=== PATIENT | female | born 1965 | race Caucasian/White ===

== ENCOUNTER 2019-05-22 10:45 | Emergency (ER) | payer OTHER ==
[2019-05-22 10:59] VITALS: BMI 24.2
--- NOTE | 2019-05-22 11:06 | PDOC ---
History of Present Illness - General Chief Complaint: Cold Symptoms Stated Complaint: Cold Symptoms Time Seen by Provider: 05/22/19 10:57 - History of Present Illness Initial Comments: Ms. Cespedes is a 53 y/o female with PMH significant for s/p kidney and pancreas transplant in 2016 ([facility]), s/p cardiac stents, HTN, presenting today with productive cough over the past two days. Reports that the cough is getting worse and productive of green sputum. No chest pain. Reports shortness of breath after coughing. No fever. Reports chills. No nausea/vomiting. No recent sick contacts. Meds: tacrolimus, prednisone, mycophenolate Past History - Past Medical History Allergies/Adverse Reactions: Allergies Allergy/AdvReac Type Severity Reaction Status Date / Time No Known Allergies Allergy Verified 05/22/19 10:52 Home Medications: Ambulatory Orders Aspirin [ASA -] 81 mg PO DAILY 01/04/16 Aflibercept [Eylea] 1 dose IJ ASDIR 05/22/19 Azithromycin [Zithromax 250mg Tablets -] 250 mg PO UTDICT #6 tab 05/22/19 Bupropion HCl [Bupropion HCl ER] 200 mg PO DAILY 05/22/19 Duloxetine HCl [Cymbalta -] 60 mg PO DAILY 05/22/19 Metoprolol Succinate [Toprol Xl] 25 mg PO DAILY 05/22/19 Rosuvastatin Calcium [Crestor] 5 mg PO HS 05/22/19 Anemia: No Asthma: No Cancer: No Cardiac Disorders: No CVA: No COPD: No CHF: No Dementia: No Diabetes: Yes (OVER 40 YEARS) Dialysis: Yes (, , sat) GI Disorders: Yes Disorders: Yes (ESRD, DIALYSIS ,, SAT. [facility] [address]) HTN: Yes Hypercholesterolemia: No Liver Disease: No Seizures: No Thyroid Disease: No - Surgical History Abdominal Surgery: No Appendectomy: No Cardiac Surgery: Yes (STENTS X 2 06/2014) Cholecystectomy: No Lung Surgery: No Neurologic Surgery: No Orthopedic Surgery: No - Immunization History Immunization Up to Date: Yes - Psycho Social/Smoking Cessation Hx Smoking History: Smoker current status UNK Have you smoked in the past 12 months: No Hx Alcohol Use: No Drug/Substance Use Hx: No Substance Use Type: None Hx Substance Use Treatment: No Review of Systems - Review of Systems Comments:: GENERAL/CONSTITUTIONAL: No fever or chills. No weakness._ HEAD, EYES, EARS, NOSE AND THROAT: No change in vision. No change in hearing. No sore throat._ CARDIOVASCULAR: No chest pain. Reports shortness of breath. RESPIRATORY: Reports cough. GASTROINTESTINAL: No nausea, vomiting, diarrhea or constipation._ GENITOURINARY: No dysuria, frequency, or change in urination._ MUSCULOSKELETAL: No joint or muscle swelling or pain. No neck or back pain._ SKIN: No rash_ NEUROLOGIC: No headache, vertigo, loss of consciousness, or change in strength/ sensation._ ENDOCRINE: No increased thirst. No abnormal weight change_ HEMATOLOGIC/LYMPHATIC: No anemia, easy bleeding, or history of blood clots._ ALLERGIC/IMMUNOLOGIC: No hives or skin allergy._ *Physical Exam - Vital Signs Last Vital Signs Temp Pulse Resp BP Pulse Ox 98.4 F 92 H 18 120/71 99 05/22/19 10:56 05/22/19 10:56 05/22/19 10:56 05/22/19 10:56 05/22/19 10:56 - Physical Exam GENERAL: Awake, alert, and oriented to person/place/time, in no acute distress_ HEAD: No signs of trauma, normoc ephalic, atraumatic _ EYES: PERRLA, EOMI, sclera anicteric, conjunctiva clear_ ENT: Hearing grossly normal, nares patent, oropharynx clear without exudates. No uvular deviation. Moist mucosa_ NECK: Normal ROM, supple, no lymphadenopathy, JVD, or masses_ LUNGS: No distress, speaks in full sentences, congestion in bilateral lower lung leach, no wheezes HEART: Regular rate and rhythm, normal S1 and S2, no murmurs appreciated, peripheral pulses normal and equal bilaterally._ ABDOMEN: Soft, nontender, normoactive bowel sounds. No guarding, no rebound. No masses_ EXTREMITIES: Normal inspection, Normal range of motion, no edema. No clubbing or cyanosis_ NEUROLOGICAL: Cranial nerves II through XII grossly intact. Normal speech, normal gait, no focal sensorimotor deficits _ SKIN: Warm, Dry, normal turgor, no rashes or lesions noted_ ED Treatment Course - LABORATORY CBC & Chemistry Diagram: 05/22/19 11:40 05/22/19 17:49 - RADIOLOGY Radiology Studies Ordered: Category Date Time Status CHEST PA & LAT [RAD] Stat Radiology 05/22/19 11:04 Ordered Medical Decision Making - Medical Decision Making 05/22/19 11:22 53 y/o female s/p pancreas txp, kidney txp, cardiac stents, presenting with productive cough worsening over the past 2 days. -cbc, cmp, lactic, coags -ekg, trop, cxr -ua, ucx -blood cx -duonebs -IV fluids -flu swab 05/22/19 13:09 EKG shows NSR, 91 bpm, no ST elevation/depression QTc 430. 05/22/19 15:09 CXR shows no acute intra thoracic pathology. 05/22/19 19:05 Labs reviewed. Pt reassessed. Reports moderate improvement. Plan to d/c home with PCP and transplant physician follow up tomorrow. All questions answered. Pt verbalized understanding and agreement with plan. Laboratory Tests 05/22/19 05/22/19 05/22/19 11:40 11:40 11:40 WBC 7.1 RBC 5.43 H Hgb 13.4 Hct 43.9 MCV 80.8 MCH 24.8 L D MCHC 30.7 L RDW 21.5 H Plt Count 163 D MPV 10.4 Absolute Neuts (auto) 2.6 Total Counted 100 Neutrophils % 36.3 L D Neutrophils % (Manual) 30.0 L Band Neutrophils % 8.0 Lymphocytes % 18.1 D Lymphocytes % (Manual) 19.0 Monocytes % 42.8 H D Monocytes % (Manual) 33 H Eosinophils % 2.3 Eosinophils % (Manual) 2.0 Basophils % 0.5 Basophils % (Manual) 1.0 Nucleated RBC % 0 Platelet Estimate Adequate Platelet Comment Large platelets Polychromasia 1+ Macrocytosis 1+ Spherocytes 1+ Ovalocytes 1+ PT with INR 13.40 H INR 1.13 H PTT (Actin FS) 34.8 Sodium Cancelled Potassium Cancelled Chloride Cancelled Carbon Dioxide Cancelled Anion Gap Cancelled BUN Cancelled Creatinine Cancelled Est GFR (CKD-EPI)AfAm Cancelled Est GFR (CKD-EPI)NonAf Cancelled Random Glucose Cancelled Lactic Acid Calcium Cancelled Total Bilirubin Cancelled AST Cancelled ALT Cancelled Alkaline Phosphatase Cancelled Creatine Kinase Cancelled Troponin I Cancelled Total Protein Cancelled Albumin Cancelled Urine Color Urine Appearance Urine pH Ur Specific [place] Urine Protein Urine Glucose (UA) Urine Ketones Urine Blood Urine Nitrite Urine Bilirubin Urine Urobilinogen Ur Leukocyte Esterase Influenza A (Rapid) Influenza B (Rapid) 05/22/19 05/22/19 05/22/19 11:40 11:40 11:50 WBC RBC Hgb Hct MCV MCH MCHC RDW Plt Count MPV Absolute Neuts (auto) Total Counted Neutrophils % Neutrophils % (Manual) Band Neutrophils % Lymphocytes % Lymphocytes % (Manual) Monocytes % Monocytes % (Manual) Eosinophils % Eosinophils % (Manual) Basophils % Basophils % (Manual) Nucleated RBC % Platelet Estimate Platelet Comment Polychromasia Macrocytosis Spherocytes Ovalocytes PT with INR INR PTT (Actin FS) Sodium Potassium Chloride Carbon Dioxide Anion Gap BUN Creatinine Est GFR (CKD-EPI)AfAm Est GFR (CKD-EPI)NonAf Random Glucose Lactic Acid 1.6 Calcium Total Bilirubin AST ALT Alkaline Phosphatase Creatine Kinase Troponin I Total Protein Albumin Urine Color Yellow Urine Appearance Clear Urine pH 5.5 Ur Specific [place] 1.015 Urine Protein Trace Urine Glucose (UA) Negative Urine Ketones Negative Urine Blood Negative Urine Nitrite Negative Urine Bilirubin 1+ H Urine Urobilinogen 1.0 Ur Leukocyte Esterase Negative Influenza A (Rapid) Negative Influenza B (Rapid) Negative 05/22/19 05/22/19 12:41 17:49 WBC RBC Hgb Hct MCV MCH MCHC RDW Plt Count MPV Absolute Neuts (auto) Total Counted Neutrophils % Neutrophils % (Manual) Band Neutrophils % Lymphocytes % Lymphocytes % (Manual) Monocytes % Monocytes % (Manual) Eosinophils % Eosinophils % (Manual) Basophils % Basophils % (Manual) Nucleated RBC % Platelet Estimate Platelet Comment Polychromasia Macrocytosis Spherocytes Ovalocytes PT with INR INR PTT (Actin FS) Sodium 142 141 Potassium 3.1 L 4.7 Chloride 114 H 114 H Carbon Dioxide 18 L 20 L Anion Gap 10 7 L BUN 14.8 12.2 Creatinine 0.7 0.8 Est GFR (CKD-EPI)AfAm 113.05 96.19 Est GFR (CKD-EPI)NonAf 97.54 83.00 Random Glucose 86 111 H Lactic Acid Calcium 7.3 L 8.1 L Total Bilirubin 0.3 0.2 AST 12 L 20 ALT 11 L 16 Alkaline Phosphatase 62 72 Creatine Kinase 76 Troponin I < 0.02 Total Protein 5.4 L 6.3 L Albumin 2.8 L 3.2 L Urine Color Urine Appearance Urine pH Ur Specific [place] Urine Protein Urine Glucose (UA) Urine Ketones Urine Blood Urine Nitrite Urine Bilirubin Urine Urobilinogen Ur Leukocyte Esterase Influenza A (Rapid) Influenza B (Rapid) Discharge - Discharge Information Problems reviewed: Yes Clinical Impression/Diagnosis: URI (upper respiratory infection) Condition: Stable Disposition: HOME - Admission No - Additional Discharge Information Prescriptions: Azithromycin [Zithromax 250mg Tablets -] 250 mg PO UTDICT #6 tab - Follow up/Referral Referrals: Courtney Sheikh MD [Primary Care Provider] - - Patient Discharge Instructions Additional Instructions: Please make a follow up appointment with your transplant physician Dr. Rodríguez this week. Please take azithromycin antibiotic as prescribed. If you experience any new, worsening, or concerning symptoms, including fever, chills, nausea, vomiting, or any other concerns, please return to the emergency department. - Post Discharge Activity
[2019-05-22] MEDS ORDERED: SODIUM CHLORIDE 0.9% 500 ML INFUS.BAG IV ONE ×2 (11:20→14:31)
[2019-05-22] MEDS ORDERED: ALBUTEROL SO4 2.5/IPRATROPIUM 0.5 INH SOL 3 ML VIAL.NEB. NEB ONE ×3 (11:20→11:53)
--- NOTE | 2019-05-22 11:43 | PDOC ---
Documentation entered by Bobby Gomez SCRIBE, acting as scribe for Junie Robertson DO. Junie Robertson DO: This documentation has been prepared by the Patricia holliday Nirvannie, SCRIBE, under my direction and personally reviewed by me in its entirety. I confirm that the documentation accurately reflects all work, treatment, procedures, and medical decision making performed by me. Attending Attestation - Resident Resident Name: JoseShamir - ED Attending Attestation I have performed the following: I have examined & evaluated the patient, The case was reviewed & discussed with the resident, I agree w/resident's findings & plan, Exceptions are as noted - HPI HPI: 05/22/19 11:49 The patient is a 53 year old female, with a significant past medical history of pancreatic and kidney transplant (16), s/p cardiac stenting, who presents to the emergency department with 1 week of a progressively worsening cough. As per patient, her cough initially onset at productive with white sputum and over the course of the past 2 days her sputum has become green. She endorses associated mild shortness of breath and chest discomfort during coughing spells with associated subjective fevers, chills, and rhinorrhea. Patient notes calling her transplant doctor in regards to her symptoms who advised her to report to the ED for further evaluation. Patient is not up to date with her arrival to the ED. She denies recent nausea, vomiting, diarrhea or constipation. She denies recent dysuria, frequency, urgency or hematuria. Allergies: NKDA Primary Care Physician: Dr. Sheikh - Physicial Exam PE: 05/22/19 11:50 Constitutional: +Ill appearing. Awake, alert, oriented. No acute distress. Head: Normocephalic. Atraumatic Eyes: PERRL. EOMI. Conjunctivae are not pale. ENT: +Mucous membranes are dry. Posterior pharynx without exudates or erythema. Uvula midline. Neck: Supple. Full ROM. No lymphadenopathy. Cardiovascular: Regular rate. Regular rhythm. S1, S2 regular. Distal pulses are 2+ and symmetric. Pulmonary/Chest: +Rhonchorous, coarse breath sounds bilaterally. No evidence of respiratory distress. Abdominal: Soft and non-distended. There is no tenderness. No rebound, guarding or rigidity. No organomegaly. No palpable masses. Good bowel sounds. Back: No CVA tenderness. Musculoskeletal: No edema. No cyanosis. No clubbing. Full range of motion in all extremities. No calf tenderness. Radial/pedal pulses are intact and 2+ bilaterally Skin: +Tenting skin. Skin is warm and dry. No petechiae. No purpura. Neurological: Alert and oriented to person, place, and time. Cranial nerves II -XII are grossly intact. Normal speech. Strength is grossly symmetric. No sensory deficits. Psychiatric: Good eye contact. Normal interaction, affect and behavior. - Medical Decision Making 05/22/19 11:41 a/p: 53yo female s/p renal/pancreas transplant in 2016 with a cough x 1 week -did not check temp at home, but has been hot/cold/having sweats -pt with cough productive green sputum -pt states cp with the cough, rhinorrhea, post nasal gtt -will send labs, flu, cultures, cxr, ekg -if pt with pna, will need transfer to her transplant team at [facility] 05/22/19 11:58 cxr clear 05/22/19 13:41 no elevated wbc flu neg 05/22/19 14:30 potassium 3.1 will replace pt feeling better 05/22/19 14:44 cxr clear 05/22/19 16:47 ivf hydration running will repeat chem and dc to home Heart Score/ECG Review - ECG Intrepretation Comment:: 05/22/19 12:31 sinus at 91, nl axis, nl interval, no acute st/t wave findings
[2019-05-22 12:14] LABS: BASO % 0.5 % (0-2.0); EOS % 2.3 % (0-4.5); HEMATOCRIT 43.9 % (32.4-45.2); HEMOGLOBIN 13.4 GM/dL (10.7-15.3); LYMPH % 18.1 % (8-40); MCH 24.8 pg (25.7-33.7); MCHC 30.7 g/dl (32.0-36.0); MEAN CELL VOLUME 80.8 fl (80-96); MEAN PLT VOLUME 10.4 fl (7.5-11.1); MONO % 42.8 % (3.8-10.2); NEUT % 36.3 % (42.8-82.8); PLATELET COUNT 163 K/MM3 (134-434); RBC 5.43 M/mm3 (3.60-5.2); RDW 21.5 % (11.6-15.6); WHITE BLOOD COUNT 7.1 K/mm3 (4.0-10.0)
[2019-05-22 12:16] LABS: PH,URINE 5.5 (5.0-8.0); URINE APPEARANCE Clear; URINE BILIRUBIN 1+ (NEGATIVE); URINE COLOR Yellow; URINE GLUCOSE (UA) Negative (NEGATIVE); URINE KETONE Negative (NEGATIVE); URINE LEUK ESTERASE Negative (NEGATIVE); URINE NITRITE Negative (NEGATIVE); URINE PROTEIN Trace (NEGATIVE)
[2019-05-22 12:21] LABS: INR 1.13 (0.83-1.09); PROTHROMBIN TIME (PATIENT) 13.4 SEC (9.7-13.0)
[2019-05-22 12:24] LABS: ACTIVATED PTT 34.8 SECONDS (25.2-36.5)
[2019-05-22 12:58] VITALS: TEMP 98.6
[2019-05-22 13:12] LABS: MACROCYTOSIS 1+; OVALOCYTE 1+; PLATELET ESTIMATE ADEQUATE
[2019-05-22 14:11] LABS: ALBUMIN 2.8 g/dl (3.4-5.0); ALK PHOS 62 U/L (45-117); ANION GAP 10 MMOL/L (8-16); BILIRUBIN,TOTAL 0.3 mg/dL (0.2-1); BLOOD UREA NITROGEN 14.8 mg/dL (7-18); CALCIUM 7.3 mg/dL (8.5-10.1); CHLORIDE 114 mmol/L (98-107); CO2 18 mmol/L (21-32); CREATININE 0.7 mg/dL (0.55-1.3); GLUCOSE,RANDOM 86 mg/dL (74-106); POTASSIUM 3.1 mmol/L (3.5-5.1); SGOT/AST 12 U/L (15-37); SGPT/ALT 11 U/L (13-61); SODIUM 142 mmol/L (136-145); TOT PROT 5.4 g/dl (6.4-8.2)
[2019-05-22] MEDS ORDERED: POTASSIUM CHLORIDE TABS 20 MEQ TABLET.ER (FP) PO ONE ×2 (14:31→15:23)
[2019-05-22] MEDS ORDERED: AZITHROMYCIN 250 MG TABLET PO ONE (15:15)
[2019-05-22] MEDS ORDERED: AZITHROMYCIN 250 MG TABLET ONE (15:24)
[2019-05-22 18:45] LABS: ALBUMIN 3.2 g/dl (3.4-5.0); BILIRUBIN,TOTAL 0.2 mg/dL (0.2-1); BLOOD UREA NITROGEN 12.2 mg/dL (7-18); CALCIUM 8.1 mg/dL (8.5-10.1); CREATININE 0.8 mg/dL (0.55-1.3); POTASSIUM 4.7 mmol/L (3.5-5.1); TOT PROT 6.3 g/dl (6.4-8.2)
[2019-05-22 19:13] VITALS: BP 145/78; PULSE 95
--- NOTE | 2019-05-23 14:10 | EKG ---
Test Reason : Blood Pressure : / mmHG Vent. Rate : 091 BPM Atrial Rate : 091 BPM P-R Int : 118 ms QRS Dur : 084 ms QT Int : 350 ms P-R-T Axes : 050 -21 102 degrees QTc Int : 430 ms POOR DATA QUALITY, INTERPRETATION MAY BE ADVERSELY AFFECTED NORMAL SINUS RHYTHM POSSIBLE LEFT ATRIAL ENLARGEMENT T WAVE ABNORMALITY, CONSIDER LATERAL ISCHEMIA ABNORMAL ECG WHEN COMPARED WITH ECG OF 23-DEC-2015 14:30, T WAVE INVERSION NOW EVIDENT IN LATERAL LEADS Confirmed by Hazel Randolph ([id number]) on 05/23/2019 2:10:07 PM Referred By: Confirmed By:Hazel Randolph
== END 2019-05-22 19:14 | disposition home or self-care (01) ==
LOC: JER 10:45
PROC: 3E0F7GC Introduction of Other Therapeutic Substance into Respiratory Tract, Via Natural or Artificial Opening (ICD-10-PCS; principal; 2019-05-22)
PROC: 3E0F7GC Introduction of Other Therapeutic Substance into Respiratory Tract, Via Natural or Artificial Opening (ICD-10-PCS; 2019-05-22)
DX: J06.9 Acute upper respiratory infection, unspecified (principal); I25.10 Atherosclerotic heart disease of native coronary artery without angina pectoris; I13.11 Hypertensive heart and chronic kidney disease without heart failure, with stage 5 chronic kidney disease, or end stage renal disease; N18.6 End stage renal disease; Z94.0 Kidney transplant status; Z94.83 Pancreas transplant status; Z95.5 Presence of coronary angioplasty implant and graft; E11.22 Type 2 diabetes mellitus with diabetic chronic kidney disease
CPT/HCPCS: 36415; 71046-TC-FY; 80053; 81003; 82550; 83605; 84484; 85025; 85610; 85730; 87040; 87086; 87804; 93005; 93010; 94640; 99283-25

== ENCOUNTER 2020-01-07 12:25 | Emergency (ER) | payer OTHER ==
[2020-01-07 12:49] VITALS: BMI 24.2
--- NOTE | 2020-01-07 13:33 | PDOC ---
History of Present Illness - General Chief Complaint: Pain Stated Complaint: L/SHOULDER PAIN Time Seen by Provider: 01/07/20 13:15 - History of Present Illness Initial Comments: Keiko Cespedes is a 54 y/o female with PMH significant for HTN and s/p pancreas and kidney txp, presenting today with left sided shoulder and arm pain. Reports that the pain started 1 week ago while she was at home. She also fell 1 month ago and broke her left 2nd and 3rd toe and is wearing a hard boot. Pain is on her posterior left shoulder and throbbing through her left arm and elbow. Pain is relieved with Tylenol (takes 675 mg BID). Not made worse by anything. Pain radiates form her shoulder down her arm. Pain is reproducible. No recent trauma/fall. No fever/chills. No chest pain/shortness of breath. No abdominal pain/back pain/neck pain. No urinary symptoms. Pain is intermittent and worsening. Past History - Medical History Allergies/Adverse Reactions: Allergies Allergy/AdvReac Type Severity Reaction Status Date / Time No Known Allergies Allergy Verified 01/07/20 12:33 Home Medications: Ambulatory Orders Aspirin [ASA -] 81 mg PO DAILY 01/04/16 Aflibercept [Eylea] 1 dose IJ ASDIR 05/22/19 Bupropion HCl [Bupropion HCl ER] 200 mg PO DAILY 05/22/19 Duloxetine HCl [Cymbalta -] 60 mg PO DAILY 05/22/19 Metoprolol Succinate [Toprol Xl] 25 mg PO DAILY 05/22/19 Rosuvastatin Calcium [Crestor] 5 mg PO HS 05/22/19 Lidocaine 5% Patch [Lidoderm Patch -] 1 patch TP DAILY PRN #4 patch 01/07/20 Anemia: No Asthma: No Cancer: No Cardiac Disorders: No CVA: No COPD: No CHF: No Dementia: No Diabetes: Yes (OVER 40 YEARS) Dialysis: Yes (, , sat) GI Disorders: Yes Disorders: Yes (ESRD, DIALYSIS ,, SAT. [facility] [address]) HTN: Yes Hypercholesterolemia: No Liver Disease: No Seizures: No Thyroid Disease: No - Surgical History Abdominal Surgery: No Appendectomy: No Cardiac Surgery: Yes (STENTS X 2 06/2014) Cholecystectomy: No Lung Surgery: No Neurologic Surgery: No Orthopedic Surgery: No - Immunization History Immunization Up to Date: Yes - Psycho-Social/Smoking History Smoking History: Unknown if ever smoked Have you smoked in the past 12 months: No - Substance Abuse Hx (Audit-C & DAST Scrn) How often the patient has a drink containing alcohol: Never Score: In Men: 4 or > Positive; In Women: 3 or > Positive: 0 Screen Result (Pos requires Nsg. Audit-10AR): Negative In the last yr the pt used illegal drug/Rx for NonMed reason: No Score: Yes response is considered Positive: 0 Screen Result (Positive result requires Nsg. DAST-10): Negative Review of Systems - Review of Systems Comments:: GENERAL/CONSTITUTIONAL: No fever or chills. No weakness._ HEAD, EYES, EARS, NOSE AND THROAT: No change in vision. No change in hearing. No sore throat._ CARDIOVASCULAR: No chest pain or shortness of breath_ RESPIRATORY: Denies cough, hemoptysis_ GASTROINTESTINAL: No nausea, vomiting, diarrhea or constipation._ GENITOURINARY: No dysuria, frequency, or change in urination._ MUSCULOSKELETAL: Reports left shoulder, upper arm, and elbow pain. No neck or back pain._ SKIN: No rash_ NEUROLOGIC: No headache, vertigo, loss of consciousness, or change in strengt h/sensation._ ENDOCRINE: No increased thirst. No abnormal weight change_ HEMATOLOGIC/LYMPHATIC: No anemia, easy bleeding, or history of blood clots._ ALLERGIC/IMMUNOLOGIC: No hives or skin allergy._ *Physical Exam - Vital Signs Last Vital Signs Temp Pulse Resp BP Pulse Ox 67 18 150/81 99 01/07/20 12:36 01/07/20 12:36 01/07/20 12:36 01/07/20 12:36 - Physical Exam GENERAL: Awake, alert, and oriented to person/place/time, in no acute distress_ HEAD: No signs of trauma, normocephalic, atraumatic _ EYES: PERRLA, EOMI, sclera anicteric, conjunctiva clear_ ENT: Hearing grossly normal, nares patent, oropharynx clear without exudates. No uvular deviation. Moist mucosa_ NECK: Normal ROM, supple, no lymphadenopathy, JVD, or masses_ LUNGS: No distress, speaks in full sentences, clear to auscultation bilaterally _ HEART: Regular rate and rhythm, normal S1 and S2, no murmurs appreciated, peripheral pulses normal and equal bilaterally._ ABDOMEN: Soft, nontender, normoactive bowel sounds. No guarding, no rebound. No masses_ EXTREMITIES: RUE: Inspection: No erythema or ecchymosis. No tenderness, no obvious abnormalities, no open wounds. Compartments soft and compressible, pain within proportion, no pain to passive stretch Sensation: sensation present to light touch m/r/u n Motor: intact AIN/PIN/Ulnar in hand; 5/5 lead painter strength, 5/5 Wrist flex/ext; 5/5 Elbow flex/ext; 5/5 Shoulder ABd,Flex Vascular: 2+ radial pulse palpated, BCR all fingers <2 sec. LUE: Inspection: No erythema or ecchymosis. TTP left posterior shoulder, left upper arm, and left elbow, no obvious abnormalities, no open wounds. Compartments soft and compressible, pain within proportion. Limited ROM (shoulder abduction 2/2 pain). Sensation: sensation present to light touch m/r/u n Motor: intact AIN/PIN/Ulnar in hand; 3/5 lead painter strength, 3/5 Wrist flex/ext; 3/5 Elbow flex/ext; 3/5 Shoulder ABd,Flex 2/2 pain. Vascular: 2+ radial pulse palpated, BCR all fingers <2 sec. NEUROLOGICAL: Cranial nerves II through XII grossly intact. Normal speech, normal gait, no focal sensorimotor deficits _ SKIN: Warm, Dry, normal turgor, no rashes or lesions noted_ Medical Decision Making - Medical Decision Making 54F presenting with left shoulder and arm pain that started 1 week ago. No fever/chills. Fell 1 week ago but no other recent falls/trauma. DDx includes MSK pain vs tendonitis vs r/o fx. -XR left shoulder/humerus/elbow -tylenol -lidoderm patch 01/07/20 13:33 EKG shows 65 bpm, NSR, no axis deviation, WA 124, QTc 428, no ST elevation/depression. 01/07/20 15:32 Pt reassessed. Reports that pain has improved with lidoderm patch. XR left shoulder shows no obvious dislocation or fx. XR left humerus shows no obvious fracture. XR left elbow shows no obvious fracture or dislocation. Plan to d/c home with tylenol and lidoderm patch for pain control. PCP and ortho f/u PRN. All questions answered. Return precautions given. Pt verbalized understanding and agreement with plan. Discharge - Discharge Information Problems reviewed: Yes Clinical Impression/Diagnosis: Arm pain, left Shoulder pain, left Qualifiers: Chronicity: unspecified Qualified Code(s): M25.512 - Pain in left shoulder Condition: Stable Disposition: HOME - Admission No - Additional Discharge Information Prescriptions: Lidocaine 5% Patch [Lidoderm Patch -] 1 patch TP DAILY PRN #4 patch PRN Reason: Pain - Follow up/Referral Referrals: Luis Felipe Amor DO [Staff Physician] - Courtney Sheikh MD [Primary Care Provider] - Abdulaziz Navas DO [Staff Physician] - - Patient Discharge Instructions Patient Printed Discharge Instructions: DI for Shoulder Pain, DI for Arm Pain Additional Instructions: Please take Tylenol for your pain. Follow instructions on the package. Please apply the pain medicine patch to your arm once a day. Please make an appt with your primary care doctor. Please make a follow up appointment with an orthopedist if your pain does not improve (referrals provided here). If you experience any new, worsening, or concerning symptoms, including wor sening arm pain, frequent falls, or any other concerns, please return to the emergency department. - Post Discharge Activity
[2020-01-07] MEDS ORDERED: LIDOCAINE 5% TOPICAL PATCH TP ONE (13:39)
[2020-01-07] MEDS ORDERED: ACETAMINOPHEN 325 MG TABLET (FP) PO ONE (13:39)
[2020-01-07] MEDS ORDERED: ACETAMINOPHEN 325 MG TABLET (FP) ONE (13:51)
[2020-01-07] MEDS ORDERED: LIDOCAINE 5% TOPICAL PATCH ONE (13:52)
--- NOTE | 2020-01-07 15:50 | PDOC ---
Documentation entered by Cherrie Bustos SCRIBE, acting as scribe for Sylvia Dumont MD. Sylvia Dumont MD: This documentation has been prepared by the Akash holliday Ana, SCRIBE, under my direction and personally reviewed by me in its entirety. I confirm that the documentation accurately reflects all work, treatment, procedures, and medical decision making performed by me. Attending Attestation - Resident Resident Name: Shamir Garcia - ED Attending Attestation I have performed the following: I have examined & evaluated the patient, The case was reviewed & discussed with the resident, I agree w/resident's findings & plan, Exceptions are as noted - HPI HPI: 01/07/20 13:26 Patient is a 54 year old female with a significant past medical history of hypertension and s/p pancreas and kidney txp, who presents to the ED with worsening left shoulder and left arm pain x1 week. Patient described her pain as a "throbbing sensation" and that it radiates from her shoulder down to her arm which can be relieved with Tylenol but that nothing necessarily makes it worse. Patient also reports that she fell about 1 month ago and ended up breaking a couple toes which she is currently wearing a hard boot for. Patient denies: recent trauma/ fall, fever, chills, neck pain, SOB, chest pain, abdominal pain, back pain, any urinary issues, or any other related symptoms. Allergies: NKDA - Physicial Exam PE: 01/07/20 14:59 Agree with resident exam. Patient is alert and oriented and in no acute distress. Full ROM of L shoulder, although patient experiences pain with mo vement of the shoulder. + diffuse tenderness in the shoulder and upper arm, but no ecchymosis or deformity. 01/07/20 15:43 - Medical Decision Making 01/07/20 15:46 Pt presents to the ED complaining of atraumatic upper extremity pain. improved with ibuprofen and lidocaine patch. most likely muscular pain. Will discharge home with instructions to return to the ED for worsening symptoms. Discharge - Discharge Information Problems reviewed: Yes Clinical Impression/Diagnosis: Arm pain, left Shoulder pain, left Qualifiers: Chronicity: unspecified Qualified Code(s): M25.512 - Pain in left shoulder Condition: Stable Disposition: HOME - Additional Discharge Information Prescriptions: Lidocaine 5% Patch [Lidoderm Patch -] 1 patch TP DAILY PRN #4 patch PRN Reason: Pain - Follow up/Referral Referrals: Luis Felipe Amor DO [Staff Physician] - Courtney Sheikh MD [Primary Care Provider] - Abdulaziz Navas DO [Staff Physician] - - Patient Discharge Instructions Patient Printed Discharge Instructions: DI for Shoulder Pain, DI for Arm Pain Additional Instructions: Please take Tylenol for your pain. Follow instructions on the package. Please apply the pain medicine patch to your arm once a day. Please make an appt with your primary care doctor. Please make a follow up appointment with an orthopedist if your pain does not improve (referrals provided here). If you experience any new, worsening, or concerning symptoms, including worsening arm pain, frequent falls, or any other concerns, please return to the emergency department. - Post Discharge Activity
[2020-01-07 15:55] VITALS: BP 150/87; PULSE 66
[2020-01-07] MEDS ORDERED: LIDOCAINE PATCH REMOVAL MC SCH (22:00)
--- NOTE | 2020-01-09 11:03 | EKG ---
Test Reason : Blood Pressure : / mmHG Vent. Rate : 065 BPM Atrial Rate : 065 BPM P-R Int : 124 ms QRS Dur : 086 ms QT Int : 412 ms P-R-T Axes : 059 -19 131 degrees QTc Int : 428 ms NORMAL SINUS RHYTHM POSSIBLE LEFT ATRIAL ENLARGEMENT T WAVE ABNORMALITY, CONSIDER LATERAL ISCHEMIA ABNORMAL ECG WHEN COMPARED WITH ECG OF 22-MAY-2019 12:14, T WAVE INVERSION MORE EVIDENT IN LATERAL LEADS Confirmed by HEYDI GIANG MD ([id number]) on 01/09/2020 11:03:05 AM Referred By: Confirmed By:HEYDI GIANG MD
== END 2020-01-07 16:00 | disposition home or self-care (01) ==
LOC: JER 12:25
DX: M25.512 Pain in left shoulder (principal)
CPT/HCPCS: 73030-TC-LT-FY; 73060-TC-LT-FY; 73070-TC-LT-FY; 93005; 93010; 99284-25

== ENCOUNTER 2020-03-06 15:34 | Emergency (ER) | payer OTHER ==
[2020-03-06 15:53] VITALS: BMI 24.2
[2020-03-06] MEDS ORDERED: LACTATED RINGERS IV ONE (16:15)
[2020-03-06] MEDS ORDERED: DEXTROSE 5% IV ONE (16:15)
[2020-03-06 16:35] LABS: VENOUS BASE EXCESS -1.4 mmol/L (-2-2); VENOUS O2 SATURATION 86.8 % (70-80); VENOUS PCO2 35.3 mmHg (38-52); VENOUS PH 7.42 (7.310-7.410)
[2020-03-06 16:40] LABS: BASO % 0.2 % (0-2.0); HEMATOCRIT 44.1 % (32.4-45.2); HEMOGLOBIN 13.9 GM/dL (10.7-15.3); LYMPH % 3.1 % (8-40); MCH 27.5 pg (25.7-33.7); MCHC 31.5 g/dl (32.0-36.0); MEAN CELL VOLUME 87.3 fl (80-96); MEAN PLT VOLUME 9.7 fl (7.5-11.1); MONO % 17.1 % (3.8-10.2); NEUT % 79.6 % (42.8-82.8); PLATELET COUNT 105 K/MM3 (134-434); RBC 5.05 M/mm3 (3.60-5.2); RDW 21.2 % (11.6-15.6); WHITE BLOOD COUNT 7.8 K/mm3 (4.0-10.0)
[2020-03-06 16:46] LABS: INR 1.11 (0.83-1.09); PROTHROMBIN TIME (PATIENT) 13.4 SEC (9.7-13.0)
[2020-03-06 16:49] LABS: ACTIVATED PTT 27.2 SECONDS (25.2-36.5)
[2020-03-06 17:00] LABS: POTASSIUM 3.7 mmol/L (3.5-5.1)
[2020-03-06 17:02] LABS: CALCIUM 9.2 mg/dL (8.5-10.1)
[2020-03-06 17:03] LABS: ALBUMIN 3.6 g/dl (3.4-5.0); BLOOD UREA NITROGEN 16.4 mg/dL (7-18)
[2020-03-06 17:08] LABS: BILIRUBIN,TOTAL 0.5 mg/dL (0.2-1); TOT PROT 6.8 g/dl (6.4-8.2)
[2020-03-06 17:44] LABS: EPI CELLS 30 /uL (0-25.1); HYALINE CASTS 22 /uL (0-3.1); URINE APPEARANCE TURBID; URINE BACTERIA >9,000 /uL (0-1359); URINE BILIRUBIN NEGATIVE (NEGATIVE); URINE COLOR YELLOW; URINE GLUCOSE (UA) TRACE (NEGATIVE); URINE KETONE NEGATIVE (NEGATIVE); URINE LEUK ESTERASE 2+ (NEGATIVE); URINE NITRITE POSITIVE (NEGATIVE); URINE PROTEIN 2+ (NEGATIVE); URINE RBC 14 /uL (0-23.9); URINE WBC 305 /uL (0-25.8)
[2020-03-06] MEDS ORDERED: ASPIRIN 81 MG CHEWABLE TABLETS PO ONE (18:32)
[2020-03-06] MEDS ORDERED: CEFTRIAXONE 1,000 MG in DEXTROSE 5%-WATER - 50 ML IVPB ONE (18:55)
[2020-03-06] MEDS ORDERED: ASPIRIN 81 MG CHEWABLE TABLETS ONE (18:57)
[2020-03-06] MEDS ORDERED: CEFTRIAXONE 1 GM/50 ML BAG ONE (18:57)
[2020-03-06 19:08] VITALS: PULSE 85
[2020-03-06 19:12] LABS: URINE CRYSTALS MODERATE /hpf
[2020-03-06 19:22] LABS: ANISOCYTOSIS 1+; MACROCYTOSIS 1+
[2020-03-07 00:24] VITALS: BP 129/71; TEMP 100.6
== END 2020-03-06 20:07 | disposition short-term general hospital (02) ==
LOC: JER 15:34
PROC: 3E03329 Introduction of Other Anti-infective into Peripheral Vein, Percutaneous Approach (ICD-10-PCS; principal; 2020-03-06)
PROC: 3E0337Z Introduction of Electrolytic and Water Balance Substance into Peripheral Vein, Percutaneous Approach (ICD-10-PCS; 2020-03-06)
DX: E16.2 Hypoglycemia, unspecified (principal); N39.0 Urinary tract infection, site not specified; R41.81 Age-related cognitive decline
CPT/HCPCS: 36415; 70450-TC; 71045-TC-FY; 80053; 80061; 81003; 82550; 82803; 82962; 83605; 83690; 83721; 84484; 85025; 85610; 85730; 86769; 86850; 86900; 86901; 87040; 87086; 87186; 87804; 93005; 93010; 99285-25; C9803; U0003